=== PATIENT | female | born 1990 | race Two or more races ===

== ENCOUNTER 2025-03-30 05:32 | Day surgery (SDC) | payer OTHER ==
[2025-03-26 15:55] VITALS: BP 103/70
[~2025-03-30] VITALS: Ht 160 cm; Wt 56.7 kg
[2025-03-30] MEDS ORDERED: POVIDONE-IODINE 118 ML BOTT TOP ONE (19:27)
[2025-03-30] MEDS ORDERED: MORPHINE SULFATE 4 MG/ML VIAL IV PRN (21:15)
[2025-03-30] MEDS ORDERED: PROMETHAZINE HCL 50 MG/ML AMPUL IM ONE (21:15)
== END 2025-03-31 02:30 | disposition home or self-care (01) ==
LOC: CIR.AMB 05:32 → U 05:32 → CIR.AMB 12:15
PROVIDERS: ATTEND Obstetrics & Gynecology Obstetrics
DX: N93.8 Other specified abnormal uterine and vaginal bleeding (principal)